=== PATIENT | female | born 1950 | race Caucasian/White ===

== ENCOUNTER 2017-11-26 00:10 | Emergency (ER) | payer MEDICARE, BC ==
[2017-11-26] MEDS ORDERED: NORMAL SALINE 1000 ML 1,000 ML IV ONE (01:27)
[2017-11-26] MEDS ORDERED: MORPHINE SULFATE 10 MG/ML INJ IV ONE (01:27)
[2017-11-26] MEDS ORDERED: ONDANSETRON HCL INJ/PF 4 MG/2 ML SDV IV ONE ×3 (01:27→08:21)
--- NOTE | 2017-11-26 01:30 | ER Document Report ---
ED General - General Chief Complaint: Abdominal Pain Stated Complaint: ABDOMINAL AND CHEST PAIN Time Seen by Provider: 11/26/17 01:15 Notes: Patient is a 67-year-old female presents with complaint of abdominal pain and vomiting. Started this afternoon. She last ate a fish sandwich from [employer] followed by ice cream from [employer]. She then started having the vomiting and pain. Pain is mostly centrally located in her abdomen. No diarrhea. She said normal bowel movements. No blood in her stool. No blood or emesis. No history of abdominal surgeries. Her and her are here visiting from [place]. She does not smoke or drink. No recent medication changes. She does have a history of a hiatal hernia. Last colonoscopy was 5 years ago and showed some polyps. She has had a previous endoscopy which just showed the hiatal hernia. - Related Data Allergies/Adverse Reactions: Penicillins Allergy (Verified 11/26/17 00:25) Sulfa (Sulfonamide Antibiotics) Allergy (Verified 11/26/17 00:25) Past Medical History - Social History Smoking Status: Never Smoker Frequency of alcohol use: Rare Drug Abuse: None Family History: Reviewed & Not Pertinent Review of Systems - Review of Systems Notes: My Normal Review Basic REVIEW OF SYSTEMS: CONSTITUTIONAL : Denies fever, chills, or sweats. Denies recent illness. EENT: Denies eye, ear, throat, or mouth pain or symptoms. Denies nasal or sinus congestion. CARDIOVASCULAR: mild pain that radiates into lower chest from abdomen. RESPIRATORY: Denies cough, cold, or chest congestion. Denies shortness of breath, difficulty breathing, or wheezing. GASTROINTESTINAL: Abdominal pain and vomiting. GENITOURINARY: Denies difficulty urinating, painful urination, burning, frequency, or blood in urine. MUSCULOSKELETAL: Denies neck or back pain or joint pain or swelling. SKIN: Denies rash or skin lesions. NEUROLOGICAL: Denies altered mental status or loss of consciousness. Denies headache. Denies weakness or paralysis or loss of use of either side. Denies problems with gait or speech. Denies sensory or motor loss. ALL OTHER SYSTEMS REVIEWED AND NEGATIVE. Physical Exam - Vital signs Vitals: Temp Pulse Resp BP Pulse Ox 97.6 F 88 16 118/75 97 11/26/17 00:28 11/26/17 00:28 11/26/17 00:28 11/26/17 00:28 11/26/17 00:28 - Notes Notes: General Appearance: Well nourished, alert, cooperative, no acute distress, moderate obvious discomfort. Vitals: reviewed, See vital signs table. Head: no swelling or tenderness to the head Eyes: PERRL, EOMI, Conjuctiva clear Mouth: No decreasd moisture Throat: No tonsillar inflammation, No airway obstruction, No lymphadenopathy Lungs: No wheezing, No rales, No rhonci, No accessory muscle use, good air exchange bilaterally. Heart: Normal rate, Regular rythm, No murmur, no rub Abdomen: Normal BS, soft, No rigidity, or if abdomen is nontender. The only areas that are tender to deep palpation or the right upper quadrant as well as some of the central abdomen. These areas are just mildly tender to palpation., No guarding, no rebound, Extremities: strength 5/5 in all extremities, good pulses in all extremities, no swelling or tenderness in the extremities, no edema. Skin: warm, dry, appropriate color, no rash Neuro: speech clear, oriented x 3, normal affect, responds appropriately to questions. Course - Re-evaluation Re-evalutation: 11/26/17 02:57 Patient's labs suggest pancreatitis. She also has some liver enzyme elevation. I am waiting for the ultrasound gallbladder to be performed to see if she has a common bile duct dilatation. She still has some pain. I have ordered another dose of pain medicine to see if this helps her pain. 11/26/17 03:07 I spoke with [facility]. Said they do have beds. They said that they will call me back with the physician to speak with about possible transfer. 11/26/17 03:[address] Bledsoe, hospitalist at [facility] , who agrees to accept the patient for transfer. I did explain the plan to the patient and her . They are agreeable to this as well. Currently patient does not have fever, leukocytosis, or thickened gallbladder wall and therefore I do not think antibiotics are needed at this time. We will continue pain control and nausea control until patient is transferred. 11/26/17 05:14 Patient having recurrence of pain. Patient will be given a dose of Dilaudid as well as Zofran. Patient was kept on pulse oximeter as sometimes the Dilaudid make her a little bit sleepy. Current oxygenation on 2 L of oxygen is 97%. 11/26/17 07:16 Evaluation patient's pain is currently controlled. She is not currently having nausea. I answered all questions with her . I checked out the case to Dr. Thorpe continue monitor the patient until she is transferred. - Vital Signs Vital signs: Temp Pulse Resp BP Pulse Ox 97.8 F 88 12 159/82 H 100 11/26/17 05:25 11/26/17 03:42 11/26/17 06:00 11/26/17 05:25 11/26/17 05:25 - Laboratory Result Diagrams: 11/26/17 01:50 11/26/17 01:50 Laboratory results interpreted by me: 11/26/17 11/26/17 01:50 01:50 WBC 11.2 H RDW 14.4 H Seg Neutrophils % 82.0 H Lymphocytes % 10.8 L Absolute Neutrophils 9.2 H Glucose 144 H Calcium 10.5 H Direct Bilirubin 0.8 H AST 307 H ALT 218 H Lipase 72087.3 H - EKG Interpretation by Me Additional EKG results interpreted by me: 11/26/17 01:30 EKG is reviewed and interpreted by me. EKG shows sinus rhythm with rate of [address] segment elevation or depression. [place] interval, QRS duration, QTc intervals are within normal range. No old EKG available for comparison.
[2017-11-26] MEDS ORDERED: FENTANYL CITRATE INJ/PF 100 MCG/2 ML AMPUL IV ONE (01:37)
[2017-11-26 01:58] LABS: ABSOLUTE EOSINOPHILS # (AUTO) 0.1 10^3/uL (0.0-0.6); ABSOLUTE LYMPHOCYTES (AUTO) 1.2 10^3/uL (0.5-4.7); ABSOLUTE MONOCYTES (AUTO) 0.7 10^3/uL (0.1-1.4); ABSOLUTE NEUT (AUTO) 9.2 10^3/uL (1.7-8.2); BASOPHILS % (AUTO) 0.2 % (0-2); EOSINOPHILS % (AUTO) 0.5 % (0-6); HEMATOCRIT 39.6 % (36.0-47.0); HEMOGLOBIN 13.1 g/dL (12.0-15.5); LYMPHOCYTES % (AUTO) 10.8 % (13-45); MEAN CORPUSCULAR HEMOGLOBIN 28.9 pg (27.0-33.4); MEAN CORPUSCULAR HGB CONC 33.1 g/dL (32.0-36.0); MEAN CORPUSCULAR VOLUME 87 fl (80-97); MONOCYTES % (AUTO) 6.5 % (3-13); PLATELET COUNT 281 10^3/uL (150-450); RED BLOOD COUNT 4.53 10^6/uL (3.72-5.28); RED CELL DISTRIBUTION WIDTH 14.4 % (11.5-14.0); TOTAL CELLS COUNTED % (AUTO) 100 %; WHITE BLOOD COUNT 11.2 10^3/uL (4.0-10.5)
[2017-11-26 02:10] LABS: ALANINE AMINOTRANSFERASE 218 U/L (9-52); ALKALINE PHOSPHATASE 105 U/L (38-126); ANION GAP 9 (5-19); ASPARTATE AMINO TRANSFERASE 307 U/L (14-36); BILIRUBIN,DIRECT 0.8 mg/dL (0.0-0.4); BILIRUBIN,TOTAL 1.2 mg/dL (0.2-1.3); BLOOD UREA NITROGEN 15 mg/dL (7-20); CALCIUM 10.5 mg/dL (8.4-10.2); CARBON DIOXIDE 29 mmol/L (22-30); CHLORIDE 102 mmol/L (98-107); GLUCOSE 144 mg/dL (75-110); POTASSIUM 3.7 mmol/L (3.6-5.0); SODIUM 139.9 mmol/L (137-145); TOTAL PROTEIN 6.5 g/dL (6.3-8.2)
[2017-11-26 02:37] LABS: LIPASE 26879.3 U/L (23-300)
[2017-11-26] MEDS ORDERED: HYDROMORPHONE HCL INJ/PF 2 MG/ML AMPULE IV ONE ×3 (02:57→08:21)
[2017-11-26] MEDS ORDERED: PROMETHAZINE HCL INJ 25 MG/1 ML VIAL IM ONE (03:03)
--- NOTE | 2017-11-26 03:23 | RADIOLOGY REPORT (SQ) ---
EXAM DESCRIPTION: ACUTE ABDOMEN SERIES CLINICAL HISTORY: abdominal pain, vomiting COMPARISON: None. FINDINGS: Single view of the chest with upright and supine views of the abdomen. Cardiomediastinal silhouette has normal size and contour. No consolidation, pneumothorax, or pleural effusion. Low lung volumes. No free intraperitoneal air. Nondilated loops of large and small bowel identified. Moderate amount stool. Degenerative change of the spine. No definite acute osseous abnormalities. No abnormal calcifications identified. IMPRESSION: 1. No acute pulmonary process. 2. Nonobstructive bowel gas pattern.
[2017-11-26 07:57] VITALS: BP 165/90
--- NOTE | 2017-11-26 08:19 | RADIOLOGY REPORT (SQ) ---
EXAM DESCRIPTION: U/S ABDOMEN LTD W/DOPPLER COMPLETED DATE/TIME: 11/26/2017 2:36 am REASON FOR STUDY: RUQ abdominal pain COMPARISON: None. TECHNIQUE: Dynamic and static grayscale images acquired of the abdomen and recorded on PACS. Additio nal selected color Doppler and spectral images recorded. LIMITATIONS: None. FINDINGS: PANCREAS: No masses. Visualized pancreatic duct normal caliber. LIVER: No masses. Echotexture normal. LIVER VASCULATURE: Normal directional flow of the main portal vein and hepatic veins. GALLBLADDER: Gallstone(s). No pericholecystic fluid. No wall thickening. ULTRASOUND-DETECTED CONNER'S SIGN: Negative. INTRAHEPATIC DUCTS AND COMMON DUCT: CBD and intrahepatic ducts normal caliber. No filling defects. INFERIOR VENA CAVA: Normal flow. AORTA: No aneurysm. RIGHT KIDNEY: Normal size. Normal echogenicity. No solid or suspicious masses. No hydronephrosis. No calcifications. PERITONEAL AND RIGHT PLEURAL SPACE: No ascites or effusions. OTHER: No other significant findings. IMPRESSION: NORMAL RIGHT UPPER QUADRANT ULTRASOUND. TECHNICAL DOCUMENTATION: JOB ID: [id number]- All Rights Reserved
[2017-11-26] MEDS ORDERED: ONDANSETRON HCL INJ/PF 4 MG/2 ML SDV ONE (08:24)
[2017-11-26] MEDS ORDERED: HYDROMORPHONE HCL INJ/PF 2 MG/ML AMPULE ONE (08:24)
--- NOTE | 2017-11-26 10:19 | EKG REPORT ---
SEVERITY:- ABNORMAL ECG - SINUS RHYTHM INCOMPLETE RIGHT BUNDLE BRANCH BLOCK : Confirmed by: Rama Hutchins 26-Nov-2017 10:19:37
== END 2017-11-26 08:33 | disposition short-term general hospital (02) ==
LOC: ER 00:10
DX: K85.10 Biliary acute pancreatitis without necrosis or infection (principal); R10.9 Unspecified abdominal pain; R07.9 Chest pain, unspecified; R11.10 Vomiting, unspecified
CPT/HCPCS: 93005; 96376; 99285; 96372; 96361; 96374; 96375; 36415; 83690; 85025; 80053; 74022; 76705; 93976; 93010; J3010; J1170; J2550; J2405; J7030